=== PATIENT | male | born 1980 | race African-American/Black ===

== ENCOUNTER 2020-12-21 19:41 | Emergency (ER) | payer MEDICAID ==
[~2020-12-21] VITALS: Ht 172.7 cm; Wt 88.5 kg
[~2020-12-21 19:41] MED LIST: CARI-277 PO; IBUP-1174 PO; NOR10T PO
[2020-12-21 19:46] VITALS: BP 138/87
== END 2020-12-21 22:16 | disposition home or self-care (01) ==
LOC: ER 19:44
DX: R51.9 Headache, unspecified (principal); F17.210 Nicotine dependence, cigarettes, uncomplicated